=== PATIENT | male | born 1975 | race Caucasian/White ===

== ENCOUNTER 2020-04-09 06:50 | Outpatient (NON) | payer BC, SELFPAY ==
[2020-04-09 23:47] LABS: SARS-CoV-2 RNA PCR Negative
== END 2020-04-09 06:51 ==
LOC: ANHCOVIDDT 07:06
PROVIDERS: PCP Family Medicine; Visit Provider Physician Assistant
DX: Z20.828 Contact with and (suspected) exposure to other viral communicable diseases (principal)
CPT/HCPCS: 87635; C9803; U0003

== ENCOUNTER 2020-06-06 07:05 | Outpatient (NON) | payer BC, SELFPAY ==
[2020-06-07 18:46] LABS: SARS-CoV-2 RNA PCR Negative
== END 2020-06-06 07:06 ==
LOC: ANHCOVIDDT 07:05
PROVIDERS: PCP Family Medicine; Visit Provider Family Medicine
DX: Z20.822 Contact with and (suspected) exposure to COVID-19 (principal); R53.83 Other fatigue
CPT/HCPCS: C9803; U0003; U0005

== ENCOUNTER 2020-07-01 06:51 | Outpatient (NON) | payer BC, SELFPAY ==
[2020-07-01 22:50] LABS: SARS-CoV-2 RNA PCR Negative
== END 2020-07-01 06:52 ==
LOC: ANHCOVIDDT 07:04
PROVIDERS: PCP Family Medicine; Visit Provider Family Medicine
DX: Z20.822 Contact with and (suspected) exposure to COVID-19 (principal)
CPT/HCPCS: C9803; U0003; U0005

== ENCOUNTER → 2021-10-12 14:11 | Outpatient (CLI) | payer BC, SELFPAY ==
--- NOTE | ~2021-10-12 | XR_ITS ---
EXAM: XR foot RT min 3V DATE: 10/12/2021 14:43 HISTORY: M72.2 - Plantar fascial fibromatosis . COMPARISON: None available. FINDINGS: Normal mineralization. No fracture or dislocation. No lytic or blastic lesion. Joint space s are maintained. Mild hallux valgus. Plantar enthesopathy and calcification. No erosion or periostea l change. Soft tissues within normal limits. IMPRESSION: Plantar enthesopathy and calcification. Reviewed, dictated and finalized at location K.
== END ==
PROVIDERS: PCP Family Medicine; Visit Provider Physician Assistant
DX: M72.2 Plantar fascial fibromatosis (principal)
CPT/HCPCS: 73630

== ENCOUNTER 2023-10-14 14:18 | Outpatient (CLI) | payer BC, SELFPAY ==
--- NOTE | ~2023-10-14 | XR_ITS ---
EXAMINATION: XR knee RT min 4V DATE: 10/14/2023 14:32 INDICATION: Other meniscus derangements, unspecified. TECHNIQUE: 4 views of right knee including standing views were obtained. COMPARISON: Right knee radiographs 06/03/2021 FINDINGS: Bone alignment is normal. No fracture. There is mild osteoarthritis of medial and patellofe moral compartments. There is chondrocalcinosis of the menisci. There is a small knee joint effusion. IMPRESSION: 1. Mild right knee osteoarthritis. 2. Small right knee joint effusion. Reviewed, dictated and finalized at location A.
== END 2023-10-14 14:19 ==
PROVIDERS: PCP Emergency Medicine; Visit Provider Emergency Medicine
DX: M17.11 Unilateral primary osteoarthritis, right knee (principal); M25.461 Effusion, right knee
CPT/HCPCS: 73564

== ENCOUNTER 2023-12-01 09:30 | Outpatient (RCR) | payer BC, SELFPAY ==
--- NOTE | 2023-11-01 10:17 | OPREHPOC ---
Outpatient Therapy Plan of Care This is a Multidisciplinary Plan of Care that may contain components documented by all disciplines (PT, OT, and ST.) PT Problem 1 PT Problem #1 Knowledge Deficit PT Goal 1 Goal Avery with HEP Target Visit 3 PT Problem 2 PT Problem #2 Impaired Range of Motion PT Goal 1 Goal Demonstrate terminal right knee extension for even gait Target Visit 6 PT Goal 2 Goal Demonstrate no functional adductor restriction Target Visit 6 PT Problem 3 PT Problem #3 Impaired Gait PT Goal 1 Goal Ambulate with even stride length bilaterally Target Visit 6 PT Goal 2 Goal Improve LEFS score by 20% for improved subjective pain and fucntion Target Visit 6
--- NOTE | 2023-11-01 10:17 | PTOPEVAL1 ---
Assessment and note entered by Robbin Patiño, PT Evaluation Information Assessment Status Evaluation Diagnosis Right knee pain, Meniscus injury of right knee Onset August 2023 Subjective Information Reports that he began running for the first time in a while about 2 months ago. New onset of pain starting at this time. He has history of similar pain on left knee. Having trouble with eccentric activity. Reports that in the last couple of days he is seeing improvement but he has backed off on activity a lot. He was initially having pain at night and when decompressing his knee into extension. Reported Pain Level Pain Score 0: Self Report Assessment PT Clinical Summary Patient presents with decreased terminal extension of right knee complex with contributed gait deviation. At this point we are ruling out structural issue versus mechanical guarding. Emphasized terminal knee extension and quad activation. Will benefit from skilled therapy to address these deficits and normalize gait. Plan of Care Interventions Electrical Stimulation,Gait Training,Hot Pack/Cold Pack,Manual Therapy,Neuro Re-education, Therapeutic Activities,Therapeutic Exercise PT Services Indicated Yes Treatment Frequency and 1-2x/week for 6 visits Duration These treatments will address the objective and functional deficits as defined above. The patient will be advanced safely and appropriately in order for the patient to progress towards his/her prior level of function. Additional exercises will be introduced and as well as a comprehensive home exercise program upon discharge, if needed, ?to ensure carryover of functional gains achieved in the clinic. This treatment plan has been reviewed and agreement upon by the patient.
--- NOTE | 2023-12-09 10:13 | PCPTNOTE ---
Patient Cancelled today's Progress Note.
--- NOTE | 2023-12-21 15:05 | PCPTNOTE ---
Patient did not show up for scheduled appointment this date. Called and LVM with follow up instructions.
--- NOTE | 2024-01-02 12:41 | PTOPDC ---
Assessment and note entered by Starla Tse, PT, DPT Evaluation Information Assessment Status Discharge - Pt Not Present Diagnosis Right knee pain, Meniscus injury of right knee Onset August 2023 Subjective Information Called and spoke with pt after he forgot about his last appointment. Pt states his knee is doing well and he does not need to return to therapy. Assessment PT Clinical Summary Pt completed 5 visits of therapy and will be discharged at this time per his request.
== END 2024-01-02 13:59 | disposition home or self-care (01) ==
LOC: ANHGOSHPT 09:30
PROVIDERS: PCP Emergency Medicine; Visit Provider Emergency Medicine
DX: M23.305 Other meniscus derangements, unspecified medial meniscus, unspecified knee (principal)
CPT/HCPCS: 97014; 97110; 97112; 97140; 97161; 97530; G0283